=== PATIENT | male | born 1960 | race African-American/Black ===

== ENCOUNTER 2017-01-02 13:06 | Inpatient (IN) | payer OTHER ==
[2017-01-02 17:25] VITALS: BMI 23.7
--- NOTE | 2017-01-02 18:36 | HP ---
CIWA Score - CIWA Score Nausea/Vomitin Muscle Tremors: 1-None Visible, but [place] Anxiety: 3 Agitation: 3 Paroxysmal Sweats: 2 Orientation: 0-Oriented Tacttile Disturbances: 1-Very Mild Itch/Numbness (RUE) Auditory Disturbances: 1-Very Mild Visual Disturbances: 1-Very Mild Sensitivity Headache: 2-Mild CIWA-Ar Total Score: 16 Admission ROS S - HPI Chief Complaint: WITHDRAWAL SYMPTOMS Allergies/Adverse Reactions: Allergies Allergy/AdvReac Type Severity Reaction Status Date / Time Fish Containing Products Allergy Severe Swelling Verified 01/02/17 18:52 shellfish derived Allergy Severe Swelling Verified 01/02/17 18:52 No Known Drug Allergies Allergy Verified 01/02/17 18:52 SEAFOOD Allergy Severe Swelling Uncoded 01/02/17 17:49 NKDA Allergy Uncoded 01/02/17 17:50 History of Present Illness: 56 Y.O. MAN WITH A HISTORY OF ALCOHOL AND COCAINE DEPENDENCE IS HERE SEEKING DETOX. HE REPORTS HIS LONGEST PERIOD OF SOBRIETY HAS BEEN 7 YEARS. Exam Limitations: No Limitations - Ebola screening Have you traveled outside of the country in the last 21 days: No Have you had contact with anyone from an Ebola affected area: No Have you been sick,other than usual withdrawal symptoms: No Do you have a fever: No - Review of Systems Constitutional: Loss of Appetite, Changes in sleep, Unintentional Wgt. Loss EENT: reports: Blurred Vision, Hearing Loss Respiratory: reports: No Symptoms reported Cardiac: reports: No Symptoms Reported GI: reports: Diarrhea : reports: No Symptoms Reported Musculoskeletal: reports: Back Pain Integumentary: reports: No Symptoms Reported Neuro: reports: Headache, Tingling (RUE) Endocrine: reports: No Symptoms Reported Hematology: reports: No Symptoms Reported Psychiatric: reports: Judgement Intact, Mood/Affect Appropiate, Orientated x3, Depressed Other Systems: Reviewed and Negative Patient History - Patient Medical History Hx Anemia: No Hx Asthma: No Hx Chronic Obstructive Pulmonary Disease (COPD): No Hx Cancer: No Hx Cardiac Disorders: No Hx Congestive Heart Failure: No Hx Hypertension: Yes Hx Hypercholesterolemia: No Hx Pacemaker: No HX Cerebrovascular Accident: No Hx Seizures: No Hx Dementia: No Hx Diabetes: No Hx Gastrointestinal Disorders: Yes (acid reflux) Hx Liver Disease: No Hx Genitourinary Disorders: No Hx Sexually Transmitted Disorders: No Hx Renal Disease (ESRD): No Hx Thyroid Disease: No Hx Human Immunodeficiency Virus (HIV): No Hx Hepatitis C: No Hx Depression: Yes Hx Suicide Attempt: Yes ([place] age 24) Hx Bipolar Disorder: Yes (NO MEDS) Hx Schizophrenia: Yes (NO ) - Patient Surgical History Past Surgical History: No Hx Neurologic Surgery: No Hx Cataract Extraction: No Hx Cardiac Surgery: No Hx Lung Surgery: No Hx Breast Surgery: No Hx Breast Biopsy: No Hx Abdominal Surgery: No Hx Appendectomy: No Hx Cholecystectomy: No Hx Genitourinary Surgery: No Hx Section: No Hx Orthopedic Surgery: No Anesthesia Reaction: No - PPD History Previous Implant?: Yes Documented Results: Negative w/o proof PPD to be Administered?: Yes - Reproductive History Patient is a Female of Child Bearing Age (11 -55 yrs old): No - Smoking Cessation Smoking history: Current every day smoker Have you smoked in the past 12 months: Yes Aproximately how many cigarettes per day: 10 Hx Chewing Tobacco Use: No Initiated information on smoking cessation: Yes 'Breaking Loose' booklet given: 01/02/17 - Substance & Tx. History Hx Alcohol Use: Yes Hx Substance Use: Yes Substance Use Type: Alcohol, Cocaine, Heroin Hx Substance Use Treatment: Yes (DETOX: 10/2016 [facility]; REHAB: 05/2010 ) - Substances Abused Cocaine Route: Smoking Frequency: Daily Amount used: $200 Age of first use: 24 Date of Last Use: 01/01/17 Heroin Route: Smoking Frequency: 1-3 times last 30 days Amount used: 1 bag Age of first use: 56 Date of Last Use: 01/01/17 Alcohol-vodka/beer Route: Oral Frequency: Daily Amount used: 3-4 pts./2-3 6 pks. Age of first use: 12 Date of Last Use: 01/01/17 Family Disease History - Family Disease History Family Disease History: Diabetes: Grandparent, Sister ( ), CA: Mother ( LUNG CA; ) Admission Physical Exam S - Vital Signs Vital Signs: Vital Signs - 24 hr 01/02/17 17:21 Temperature 96 F L Pulse Rate 69 Respiratory 20 Rate Blood Pressure 156/97 - Physical General Appearance: Yes: Anxious HEENTM: Yes: Hearing grossly Normal, Normocephalic Respiratory: Yes: Chest Non-Tender, Lungs Clear, Normal Breath Sounds, No Respiratory Distress, No Accessory Muscle Use Neck: Yes: No masses,lesions,Nodules, Trachea in good position Breast: Yes: Within Normal Limits, No Discharge, No masses Cardiology: Yes: Regular Rhythm, Regular Rate Abdominal: Yes: Normal Bowel Sounds, Non Tender Genitourinary: Yes: Other (NO COMPLAINTS REPORTED) Musculoskeletal: Yes: Back pain Extremities: Yes: Normal Capillary Refill, Normal Inspection, Normal Range of Motion, Non-Tender Neurological: Yes: regulatory 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 II-XII NML intact, Fully Oriented, Alert Integumentary: Yes: Normal Color, Dry, Warm Lymphatic: Yes: Within Normal Limits - Diagnostic (1) Alcohol dependence with uncomplicated withdrawal Current Visit: Yes Status: Chronic (2) Cocaine dependence, uncomplicated Current Visit: Yes Status: Chronic (3) Nicotine dependence Current Visit: Yes Status: Chronic (4) Hypertension Current Visit: Yes Status: Chronic Cleared for Admission S - Detox or Rehab [facility] Level of Care: Medically Managed Detox Regimen/Protocol: Librium Urine Drug Screen - Results Urine Drug Screen Results: YORDAN-Cocaine
[2017-01-02] MEDS ORDERED: NICOTINE POLACRILEX 2 MG GUM BC PRN (18:41)
[2017-01-02] MEDS ORDERED: LOPERAMIDE HCL 2 MG CAPSULE PO PRN (18:41)
[2017-01-02] MEDS ORDERED: guaiFENesin/D-METHORPHAN HB 10 ML UNIT-DOSE CUPS PO PRN (18:41)
[2017-01-02] MEDS ORDERED: MAGNESIUM CITRATE 300 ML BOTTLE PO PRN (18:41)
[2017-01-02] MEDS ORDERED: ACETAMINOPHEN 325 MG TABLET (FP) PO PRN (18:41)
[2017-01-02] MEDS ORDERED: IBUPROFEN 400 MG TABLET (FP) PO PRN (18:41)
[2017-01-02] MEDS ORDERED: MAG HYDROX/AL HYDROX/SIMETH 30 ML UNIT-DOSE CUP PO PRN (18:41)
[2017-01-02] MEDS ORDERED: MAGNESIUM HYDROX 2400MG/30ML ORAL SUSPENSION 30 ML CUP PO PRN (18:41)
[2017-01-02] MEDS ORDERED: chlordiazePOXIDE HCL 25 MG CAPSULE PO PRN (18:41)
[2017-01-02] MEDS ORDERED: MENTHOL/PHENOL 1 EACH UD MM PRN (18:41)
[2017-01-02] MEDS ORDERED: hydrOXYzine PAMOATE 50 MG CAPSULE (FP) PO PRN (18:41)
[2017-01-02] MEDS ORDERED: P-EPHED 60MG/TRIPROLIDI 2.5MG TABLET PO PRN (18:41)
[2017-01-02] MEDS ORDERED: chlordiazePOXIDE HCL 25 MG CAPSULE PO ONE (19:15)
[2017-01-02] MEDS: diphenhydrAMINE HCL 50 MG CAPSULE PO PRN (22:14)
[2017-01-02] MEDS: THIAMINE HCL 100 MG TABLET (FP) PO SCH (22:14)
[2017-01-02] MEDS: chlordiazePOXIDE HCL 25 MG CAPSULE PO SCH (22:47)
[2017-01-02 22:49] LABS: URINE APPEARANCE SLCLOUDY; URINE BILIRUBIN NEGATIVE (NEGATIVE); URINE BLOOD NEGATIVE (NEGATIVE); URINE COLOR AMBER; URINE GLUCOSE (UA) NEGATIVE (NEGATIVE); URINE KETONE NEGATIVE (NEGATIVE); URINE LEUK ESTERASE NEGATIVE (NEGATIVE); URINE NITRITE NEGATIVE (NEGATIVE); URINE UROBILINOGEN 4.0 E.U/dl mg/dL (0.2-1.0)
[2017-01-02 22:59] LABS: URINE PROTEIN 2+ (NEGATIVE)
[2017-01-02 23:09] LABS: URINE BACTERIA RARE /hpf (NONE SEEN); URINE MUCUS MANY; URINE RBC 1 /hpf (0-3); URINE WBC 6 /hpf (3-5)
[2017-01-03] MEDS: chlordiazePOXIDE HCL 25 MG CAPSULE PO SCH ×5 (05:41→22:17)
--- NOTE | 2017-01-03 10:28 | PN ---
[facility] CIWA - CIWA Score Nausea/Vomitin Muscle Tremors: 3 Anxiety: 3 Agitation: 2 Paroxysmal Sweats: 1-Minimal Palms Moist Orientation: 0-Oriented Tacttile Disturbances: 1-Very Mild Itch/Numbness Auditory Disturbances: 1-Very Mild Visual Disturbances: 1-Very Mild Sensitivity Headache: 2-Mild CIWA-Ar Total Score: 17 BHS Progress Note (SOAP) Subjective: ALERT,IRRITABLE,ANXIOUS,INTERRUPTED SLEEP,TREMOR Objective: 01/03/17 10:26 Vital Signs Temperature 97.9 F 01/03/17 06:00 Pulse Rate 72 01/03/17 06:00 Respiratory Rate 16 01/03/17 06:00 Blood Pressure 123/77 01/03/17 06:00 O2 Sat by Pulse Oximetry (%) EKG NSR,NORMAL ECG Laboratory Last Values Urine Color Jacque 01/02/17 22:20 Urine Appearance Slcloudy 01/02/17 22:20 Urine pH 5.0 (5.0-8.0) 01/02/17 22:20 Urine Protein 2+ (NEGATIVE) H 01/02/17 22:20 Urine Glucose (UA) Negative (NEGATIVE) 01/02/17 22:20 Urine Ketones Negative (NEGATIVE) 01/02/17 22:20 Urine Blood Negative (NEGATIVE) 01/02/17 22:20 Urine Nitrite Negative (NEGATIVE) 01/02/17 22:20 Urine Bilirubin Negative (NEGATIVE) 01/02/17 22:20 Urine Urobilinogen 4.0 e.u/dl mg/dL (0.2-1.0) 01/02/17 22:20 Ur Leukocyte Esterase Negative (NEGATIVE) 01/02/17 22:20 Urine RBC 1 /hpf (0-3) 01/02/17 22:20 Urine WBC 6 /hpf (3-5) 01/02/17 22:20 Ur Epithelial Cells Rare /hpf (FEW) 01/02/17 22:20 Urine Bacteria Rare /hpf (NONE SEEN) 01/02/17 22:20 Urine Mucus Many 01/02/17 22:20 LABS PENDING Assessment: 01/03/17 10:27 WITHDRAWAL SYMPTOM Plan: CONTINUE DETOX
--- NOTE | 2017-01-03 10:33 | PN ---
S CIWA - CIWA Score Nausea/Vomitin Muscle Tremors: 3 Anxiety: 2 Agitation: 2 Paroxysmal Sweats: 1-Minimal Palms Moist Orientation: 0-Oriented Tacttile Disturbances: 1-Very Mild Itch/Numbness Auditory Disturbances: 1-Very Mild Visual Disturbances: 1-Very Mild Sensitivity Headache: 2-Mild CIWA-Ar Total Score: 16 BHS Progress Note (SOAP) Subjective: ALERT,IRRITABLE,ANXIOUS,INTERRUPTED SLEEP,TREMOR Objective: 01/03/17 10:31 Vital Signs Temperature 97.9 F 01/03/17 06:00 Pulse Rate 72 01/03/17 06:00 Respiratory Rate 16 01/03/17 06:00 Blood Pressure 123/77 01/03/17 06:00 O2 Sat by Pulse Oximetry (%) WITHDRAWAL SYMPTOM Assessment: 01/03/17 10:32 WITHDRAWAL SYMPTOM Plan: CONTINUING DETOX
[2017-01-03] MEDS: amLODIPine BESYLATE 10 MG TABLET (FP) PO SCH (11:03)
[2017-01-03] MEDS: PRENATAL VITAMINS W/ FOLIC ACID TABLET (FP) PO SCH (11:03)
[2017-01-03] MEDS: LISINOPRIL 5 MG TABLET (FP) PO SCH (11:03)
[2017-01-03] MEDS: NICOTINE 14 MG/24 HOURS TOPICAL PATCH TD SCH (11:04)
[2017-01-03 12:27] LABS: MCH 29.1 pg (25.7-33.7); MCHC 33.9 g/dl (32.0-35.9); MEAN PLT VOLUME 8.6 fl (7.5-11.1); PLATELET COUNT 254 K/MM3 (134-434); RDW 14.3 % (11.9-15.9); WHITE BLOOD COUNT 7.3 K/mm3 (4.0-10.0)
[2017-01-03 12:56] LABS: ALBUMIN 3.3 g/dl (3.4-5.0); ALK PHOS 98 U/L (45-117); ANION GAP 7 (8-16); BILIRUBIN,TOTAL 0.5 mg/dL (0.2-1.0); CALCIUM 8.9 mg/dL (8.5-10.1); CO2 28 mmol/L (21-32); CREATININE 1.8 mg/dL (0.7-1.3); GLUCOSE,RANDOM 92 mg/dL (74-106); SGOT/AST 21 U/L (15-37); SGPT/ALT 21 U/L (12-78); TOT PROT 6.6 g/dl (6.4-8.2)
--- NOTE | 2017-01-03 16:25 | CONSULT ---
[facility] Psychiatric Consult - Data Date of interview: 01/03/17 Admission source: [facility] Identifying data: Approached at bedside.Patient declines psychiatric evaluation.
[2017-01-03] MEDS: diphenhydrAMINE HCL 50 MG CAPSULE PO PRN (22:17)
[2017-01-03] MEDS: THIAMINE HCL 100 MG TABLET (FP) PO SCH (22:17)
[2017-01-04] MEDS: chlordiazePOXIDE HCL 25 MG CAPSULE PO SCH ×3 (05:51→20:03)
[2017-01-04] MEDS: PRENATAL VITAMINS W/ FOLIC ACID TABLET (FP) PO SCH (10:34)
[2017-01-04] MEDS: NICOTINE 14 MG/24 HOURS TOPICAL PATCH TD SCH (10:34)
[2017-01-04] MEDS: LISINOPRIL 5 MG TABLET (FP) PO SCH (10:34)
[2017-01-04] MEDS: amLODIPine BESYLATE 10 MG TABLET (FP) PO SCH (10:34)
--- NOTE | 2017-01-04 10:56 | PN ---
[facility] Progress Note (SOAP) Subjective: ALERT,IRRITABLE,ANXIOUS,INTERRUPTED SLEEP,PAIN IN THE BODY Objective: 01/04/17 10:55 Vital Signs Temperature 98.2 F 01/04/17 09:56 Pulse Rate 81 01/04/17 09:56 Respiratory Rate 18 01/04/17 09:56 Blood Pressure 156/75 01/04/17 09:56 O2 Sat by Pulse Oximetry (%) Assessment: 01/04/17 10:56 WITHDRAWAL SYMPTOM Plan: CONTINUE DETOX
--- NOTE | 2017-01-04 14:51 | EKG ---
Test Reason : Blood Pressure : / mmHG Vent. Rate : 063 BPM Atrial Rate : 063 BPM P-R Int : 140 ms QRS Dur : 092 ms QT Int : 456 ms P-R-T Axes : 044 056 010 degrees QTc Int : 466 ms NORMAL SINUS RHYTHM NORMAL ECG NO PREVIOUS ECGS AVAILABLE Confirmed by LISET LI MD ([id number]) on 01/04/2017 2:51:15 PM Referred By: Confirmed By:LISET LI MD
[2017-01-04] MEDS: chlordiazePOXIDE 5 MG CAPSULE PO SCH (22:24)
[2017-01-04] MEDS: THIAMINE HCL 100 MG TABLET (FP) PO SCH (22:24)
[2017-01-04] MEDS: diphenhydrAMINE HCL 50 MG CAPSULE PO PRN (22:25)
[2017-01-05] MEDS: chlordiazePOXIDE 5 MG CAPSULE PO SCH ×3 (05:06→20:19)
[2017-01-05] MEDS ORDERED: amLODIPine BESYLATE 10 MG TABLET (FP) PO SCH (10:00)
[2017-01-05] MEDS: PRENATAL VITAMINS W/ FOLIC ACID TABLET (FP) PO SCH (10:46)
[2017-01-05] MEDS: NICOTINE 14 MG/24 HOURS TOPICAL PATCH TD SCH (10:46)
[2017-01-05] MEDS: LISINOPRIL 5 MG TABLET (FP) PO SCH (10:46)
--- NOTE | 2017-01-05 12:30 | PN ---
S Progress Note (SOAP) Subjective: alert,irritable,anxious,interrupted sleep Objective: 01/05/17 12:29 Vital Signs Temperature 98.1 F 01/05/17 10:00 Pulse Rate 73 01/05/17 10:00 Respiratory Rate 18 01/05/17 10:00 Blood Pressure 130/91 01/05/17 10:00 O2 Sat by Pulse Oximetry (%) Assessment: 01/05/17 12:29 withdrawal symptom Plan: continue detox
[2017-01-05] MEDS: diphenhydrAMINE HCL 50 MG CAPSULE PO PRN (22:17)
[2017-01-05] MEDS: THIAMINE HCL 100 MG TABLET (FP) PO SCH (22:18)
[2017-01-05] MEDS: chlordiazePOXIDE HCL 10 MG CAPSULE PO SCH (22:18)
[2017-01-06] MEDS: chlordiazePOXIDE HCL 10 MG CAPSULE PO SCH (05:15)
[2017-01-06 06:25] VITALS: BP 127/79; PULSE 74; TEMP 98
--- NOTE | 2017-01-06 08:21 | PN ---
S Progress Note (SOAP) Subjective: alert,no complaint Objective: 01/06/17 08:19 Vital Signs Temperature 98 F 01/06/17 06:25 Pulse Rate 74 01/06/17 06:25 Respiratory Rate 18 01/06/17 06:25 Blood Pressure 127/79 01/06/17 06:25 O2 Sat by Pulse Oximetry (%) Assessment: 01/06/17 08:19 detox completed,no withdrawal symptom Plan: discharge today,follow up with after care program as arrangement
--- NOTE | 2017-01-06 08:24 | DS ---
[facility] Detox Discharge Summary Admission Date: 01/02/17 Discharge Date: 01/06/17 - History Present History: Alcohol Dependence, Cocaine Dependence Additional Comments: follow up with after care program as arrangement Pertinent Past History: nicotine dependence hypertension - Physical Exam Results Vital Signs: Vital Signs Temperature 98 F 01/06/17 06:25 Pulse Rate 74 01/06/17 06:25 Respiratory Rate 18 01/06/17 06:25 Blood Pressure 127/79 01/06/17 06:25 O2 Sat by Pulse Oximetry (%) Pertinent Admission Physical Exam Findings: withdrawal symptom - Treatment Hospital Course: Detox Protocol Followed, Detoxed Safely, Responded well, Discharged Condition Good Patient has Accepted a Rehab Referral to: declined - Medication Discharge Medications: Ambulatory Orders Amlodipine Besylate [Norvasc -] 10 mg PO DAILY 01/02/17 Lisinopril [Zestril] 2.5 mg PO DAILY 01/02/17 - Diagnosis (1) Alcohol dependence with uncomplicated withdrawal Current Visit: Yes Status: Chronic (2) Cocaine dependence, uncomplicated Current Visit: Yes Status: Chronic (3) Hypertension Current Visit: Yes Status: Chronic (4) Nicotine dependence Current Visit: Yes Status: Chronic - AMA Did Patient Leave Against Medical Advice: No
== END 2017-01-06 09:08 | disposition home or self-care (01) | DRG 774 ==
LOC: YASAS 13:06 → Y6N 18:44
PROVIDERS: ADMIT Internal Medicine; ATTEND Internal Medicine
PROC: HZ2ZZZZ Detoxification Services for Substance Abuse Treatment (ICD-10-PCS; principal; 2017-01-02)
DX: F10.230 Alcohol dependence with withdrawal, uncomplicated (principal); F14.20 Cocaine dependence, uncomplicated; F17.210 Nicotine dependence, cigarettes, uncomplicated; I10 Essential (primary) hypertension; K21.9 Gastro-esophageal reflux disease without esophagitis; Z91.013 Allergy to seafood; Z91.5 Personal history of self-harm; Z59.0 Homelessness
CPT/HCPCS: 36415; 80053; 81003; 81015; 85027; 86593; 93005; 93010

== ENCOUNTER 2021-04-21 16:18 | Inpatient (IN) | payer OTHER ==
[2021-04-21] MEDS ORDERED: NICOTINE 10 MG CARTRIDGE (INHALER) IH PRN (17:55)
[2021-04-21] MEDS ORDERED: LOPERAMIDE HCL 2 MG CAPSULE PO PRN (17:55)
[2021-04-21] MEDS ORDERED: MAGNESIUM CITRATE 300 ML BOTTLE PO PRN (17:55)
[2021-04-21] MEDS ORDERED: IBUPROFEN 400 MG TABLET (FP) PO PRN (17:55)
[2021-04-21] MEDS ORDERED: MAG HYDROX/AL HYDROX/SIMETH 30 ML UNIT-DOSE CUP PO PRN (17:55)
[2021-04-21] MEDS ORDERED: guaiFENesin 200 MG/10 ML 10 ML UNIT-DOSE CUPS PO PRN (17:55)
[2021-04-21] MEDS ORDERED: ACETAMINOPHEN 325 MG TABLET (FP) PO PRN (17:55)
[2021-04-21] MEDS ORDERED: P-EPHED 60MG/TRIPROLIDI 2.5MG TABLET PO PRN (17:55)
[2021-04-21] MEDS ORDERED: MAGNESIUM HYDROX 2400MG/30ML ORAL SUSPENSION 30 ML CUP PO PRN (17:55)
[2021-04-21] MEDS ORDERED: BISMUTH SUBSALICYLATE 524 MG/30 ML PO PRN (17:57)
[2021-04-21] MEDS ORDERED: METHOCARBAMOL 500 MG TABLET PO PRN (17:57)
[2021-04-21 18:11] VITALS: BMI 22.3
[2021-04-21] MEDS ORDERED: TUBERCULIN PPD 5 TU/0.1ML VIAL ID ONE (19:48)
[2021-04-21] MEDS: LISINOPRIL 5 MG TABLET PO SCH (20:12)
[2021-04-21] MEDS: hydrOXYzine PAMOATE 25 MG CAPSULE (FP) PO SCH ×2 (20:12→21:42)
[2021-04-21] MEDS: MELATONIN 5 MG TABLETS PO SCH (21:41)
[2021-04-21] MEDS: THIAMINE HCL 100 MG TABLET (FP) PO SCH (21:42)
[2021-04-22] MEDS: hydrOXYzine PAMOATE 25 MG CAPSULE (FP) PO SCH ×5 (06:12→21:04)
[2021-04-22] MEDS: LISINOPRIL 5 MG TABLET PO SCH (10:05)
[2021-04-22] MEDS: PRENATAL VITAMINS W/ FOLIC ACID TABLET (FP) PO SCH (10:05)
[2021-04-22] MEDS: ASPIRIN 81 MG CHEWABLE TABLETS PO SCH (10:05)
[2021-04-22] MEDS: MELATONIN 5 MG TABLETS PO SCH (21:04)
[2021-04-22] MEDS: THIAMINE HCL 100 MG TABLET (FP) PO SCH (21:04)
[2021-04-23] MEDS: hydrOXYzine PAMOATE 25 MG CAPSULE (FP) PO SCH ×5 (06:24→21:04)
[2021-04-23] MEDS: PRENATAL VITAMINS W/ FOLIC ACID TABLET (FP) PO SCH (10:41)
[2021-04-23] MEDS: ASPIRIN 81 MG CHEWABLE TABLETS PO SCH (10:41)
[2021-04-23] MEDS: LISINOPRIL 5 MG TABLET PO SCH (10:41)
[2021-04-23 11:12] LABS: HEMATOCRIT 38.7 % (35.4-49); HEMOGLOBIN 12.9 GM/dL (11.7-16.9); MCH 29.2 pg (25.7-33.7); MCHC 33.4 g/dl (32.0-35.9); MEAN CELL VOLUME 87.4 fl (80-96); MEAN PLT VOLUME 8.4 fl (7.5-11.1); PLATELET COUNT 259 10^3/uL (134-434); RBC 4.43 M/mm3 (4.00-5.60); WHITE BLOOD COUNT 4.9 K/mm3 (4.0-10.0)
[2021-04-23 13:24] LABS: BILIRUBIN,TOTAL 0.2 mg/dL (0.2-1); BLOOD UREA NITROGEN 14.4 mg/dL (7-18); CALCIUM 8.6 mg/dL (8.5-10.1); CREATININE 1.6 mg/dL (0.55-1.3); TOT PROT 6.1 g/dl (6.4-8.2)
[2021-04-23] MEDS: MELATONIN 5 MG TABLETS PO SCH (21:04)
[2021-04-23] MEDS: THIAMINE HCL 100 MG TABLET (FP) PO SCH (21:04)
[2021-04-24] MEDS: hydrOXYzine PAMOATE 25 MG CAPSULE (FP) PO SCH ×5 (06:18→21:09)
[2021-04-24] MEDS: LISINOPRIL 5 MG TABLET PO SCH (10:10)
[2021-04-24] MEDS: PRENATAL VITAMINS W/ FOLIC ACID TABLET (FP) PO SCH (10:10)
[2021-04-24] MEDS: ASPIRIN 81 MG CHEWABLE TABLETS PO SCH (10:10)
[2021-04-24] MEDS: THIAMINE HCL 100 MG TABLET (FP) PO SCH (21:09)
[2021-04-24] MEDS: MELATONIN 5 MG TABLETS PO SCH (21:09)
[2021-04-25] MEDS: hydrOXYzine PAMOATE 25 MG CAPSULE (FP) PO SCH ×5 (06:28→21:33)
[2021-04-25] MEDS: ASPIRIN 81 MG CHEWABLE TABLETS PO SCH (10:12)
[2021-04-25] MEDS: PRENATAL VITAMINS W/ FOLIC ACID TABLET (FP) PO SCH (10:12)
[2021-04-25] MEDS: LISINOPRIL 5 MG TABLET PO SCH (10:12)
[2021-04-25] MEDS: MELATONIN 5 MG TABLETS PO SCH (21:32)
[2021-04-25] MEDS: THIAMINE HCL 100 MG TABLET (FP) PO SCH (21:32)
[2021-04-26] MEDS: hydrOXYzine PAMOATE 25 MG CAPSULE (FP) PO SCH ×5 (06:22→21:38)
[2021-04-26] MEDS: PRENATAL VITAMINS W/ FOLIC ACID TABLET (FP) PO SCH (10:06)
[2021-04-26] MEDS: LISINOPRIL 5 MG TABLET PO SCH (10:06)
[2021-04-26] MEDS: ASPIRIN 81 MG CHEWABLE TABLETS PO SCH (10:06)
[2021-04-26] MEDS: THIAMINE HCL 100 MG TABLET (FP) PO SCH (21:38)
[2021-04-26] MEDS: MELATONIN 5 MG TABLETS PO SCH (21:38)
[2021-04-27] MEDS ORDERED: LISINOPRIL 5 MG TABLET ONE (03:12)
[2021-04-27] MEDS ORDERED: LISINOPRIL 5 MG TABLET PO SCH (06:00)
[2021-04-27] MEDS: hydrOXYzine PAMOATE 25 MG CAPSULE (FP) PO SCH ×5 (06:17→21:04)
[2021-04-27] MEDS: ASPIRIN 81 MG CHEWABLE TABLETS PO SCH (10:29)
[2021-04-27] MEDS: PRENATAL VITAMINS W/ FOLIC ACID TABLET (FP) PO SCH (10:29)
[2021-04-27] MEDS: MELATONIN 5 MG TABLETS PO SCH (21:04)
[2021-04-27] MEDS: THIAMINE HCL 100 MG TABLET (FP) PO SCH (21:04)
[2021-04-28 04:53] VITALS: BP 162/101; PULSE 74; TEMP 98.6
== END 2021-04-28 04:50 | disposition left against medical advice (07) | DRG 770 ==
LOC: YASAS 16:18 → Y3W 18:45
PROVIDERS: ADMIT Allergy & Immunology; ATTEND Allergy & Immunology
PROC: HZ42ZZZ Group Counseling for Substance Abuse Treatment, Cognitive-Behavioral (ICD-10-PCS; principal; 2021-04-21)
DX: F10.20 Alcohol dependence, uncomplicated (principal); F14.20 Cocaine dependence, uncomplicated; F17.210 Nicotine dependence, cigarettes, uncomplicated; I10 Essential (primary) hypertension; I25.10 Atherosclerotic heart disease of native coronary artery without angina pectoris; R79.9 Abnormal finding of blood chemistry, unspecified; R73.09 Other abnormal glucose; Z95.5 Presence of coronary angioplasty implant and graft; Z91.013 Allergy to seafood; Z59.00 Homelessness unspecified
CPT/HCPCS: 36415; 80053; 82962; 85027; 86780; 87811; 93005; 93010; C9803; U0003; U0005

== ENCOUNTER 2022-09-20 13:17 | Inpatient (IN) | payer OTHER ==
[2022-09-20 14:00] VITALS: BMI 22.3
[2022-09-20] MEDS ORDERED: DICYCLOMINE HCL 10 MG CAPSULE PO PRN (14:44)
[2022-09-20] MEDS ORDERED: METHOCARBAMOL 500 MG TABLET PO PRN (14:44)
[2022-09-20] MEDS ORDERED: IBUPROFEN 400 MG TABLET (FP) PO PRN (14:44)
[2022-09-20] MEDS ORDERED: MAG HYDROX/AL HYDROX/SIMETH 30 ML UNIT-DOSE CUP PO PRN (14:44)
[2022-09-20] MEDS ORDERED: IBUPROFEN 600 MG TABLET (FP) PO PRN (14:44)
[2022-09-20] MEDS ORDERED: BENZOCAINE/MENTHOL (CHLORASEPTIC ) LOZENGE MM PRN (14:44)
[2022-09-20] MEDS ORDERED: BISMUTH SUBSALICYLATE 524 MG/30 ML PO PRN (14:44)
[2022-09-20] MEDS ORDERED: NALOXONE HCL 0.4 MG/ML VIAL IM PRN (14:44)
[2022-09-20] MEDS ORDERED: LOPERAMIDE HCL 2 MG CAPSULE PO PRN (14:44)
[2022-09-20] MEDS ORDERED: ONDANSETRON *ODT* 4 MG TABLET SL PRN (14:44)
[2022-09-20] MEDS ORDERED: POLYETHYLENE GLYCOL (HEALTHYLAX) 3350 17 GM PACKET PO PRN (14:44)
[2022-09-20] MEDS ORDERED: MAGNESIUM HYDROX 2400MG/30ML ORAL SUSPENSION 30 ML CUP PO PRN (14:44)
[2022-09-20] MEDS ORDERED: guaiFENesin 600 MG TABLET.ER (FP) PO PRN (14:44)
[2022-09-20] MEDS ORDERED: BENZONATATE 200 MG CAPSULE PO PRN (14:44)
[2022-09-20] MEDS ORDERED: ACETAMINOPHEN 325 MG TABLET (FP) PO PRN (14:44)
[2022-09-20] MEDS ORDERED: amLODIPine BESYLATE 5 MG TABLET (FP) ONE (15:22)
[2022-09-20] MEDS: NICOTINE 7 MG/24 HOURS TOPICAL PATCH TD SCH (15:27)
[2022-09-20] MEDS: PRENATAL VITAMINS W/ FOLIC ACID TABLET (FP) PO SCH (15:30)
[2022-09-20] MEDS ORDERED: PRENATAL VITAMINS W/ FOLIC ACID TABLET (FP) PO ONE (15:31)
[2022-09-20] MEDS ORDERED: LISINOPRIL 5 MG TABLET PO SCH (15:45)
[2022-09-20] MEDS ORDERED: amLODIPine BESYLATE 5 MG TABLET (FP) PO ONE (15:45)
[2022-09-20] MEDS: LISINOPRIL 5 MG TABLET PO SCH (18:37)
[2022-09-20] MEDS: MELATONIN 5 MG TABLETS PO SCH (22:15)
[2022-09-20] MEDS: THIAMINE HCL 100 MG TABLET (FP) PO SCH (22:15)
[2022-09-21] MEDS: NICOTINE 7 MG/24 HOURS TOPICAL PATCH TD SCH (10:29)
[2022-09-21] MEDS: LISINOPRIL 5 MG TABLET PO SCH (10:31)
[2022-09-21] MEDS: PRENATAL VITAMINS W/ FOLIC ACID TABLET (FP) PO SCH (10:31)
[2022-09-21] MEDS: amLODIPine BESYLATE 10 MG TABLET (FP) PO SCH (10:31)
[2022-09-21 10:53] LABS: MCH 29.4 pg (25.7-33.7); MCHC 34.1 g/dl (32.0-35.9); MEAN PLT VOLUME 8.7 fl (7.5-11.1); PLATELET COUNT 247 10^3/uL (134-434); RBC 4.42 M/mm3 (4.00-5.60); RDW 14.2 % (11.9-15.9); WHITE BLOOD COUNT 4.8 K/mm3 (4.0-10.0)
[2022-09-21 11:37] LABS: CALCIUM 9.4 mg/dL (8.5-10.1)
[2022-09-21 11:38] LABS: ALBUMIN 3.6 g/dl (3.4-5.0); BLOOD UREA NITROGEN 16.3 mg/dL (7-18)
[2022-09-21 11:41] LABS: CREATININE 1.4 mg/dL (0.55-1.3)
[2022-09-21 11:43] LABS: BILIRUBIN,TOTAL 0.2 mg/dL (0.2-1)
[2022-09-21 13:48] VITALS: RESP 18
[2022-09-21] MEDS: THIAMINE HCL 100 MG TABLET (FP) PO SCH (22:33)
[2022-09-21] MEDS: MELATONIN 5 MG TABLETS PO SCH (22:33)
[2022-09-22 09:35] VITALS: BP 153/95; PULSE 75; TEMP 97.3
[2022-09-22] MEDS: NICOTINE 7 MG/24 HOURS TOPICAL PATCH TD SCH (10:34)
[2022-09-22] MEDS: amLODIPine BESYLATE 10 MG TABLET (FP) PO SCH (10:34)
[2022-09-22] MEDS: LISINOPRIL 5 MG TABLET PO SCH (10:34)
[2022-09-22] MEDS: PRENATAL VITAMINS W/ FOLIC ACID TABLET (FP) PO SCH (10:34)
== END 2022-09-22 09:30 | disposition home or self-care (01) | DRG 774 ==
LOC: YASAS 13:17 → UNDOADMIN 15:54 → Y6N 15:54
PROVIDERS: ADMIT Allergy & Immunology; ATTEND Surgery
PROC: HZ2ZZZZ Detoxification Services for Substance Abuse Treatment (ICD-10-PCS; principal; 2022-09-20)
DX: F10.230 Alcohol dependence with withdrawal, uncomplicated (principal); F14.20 Cocaine dependence, uncomplicated; F12.20 Cannabis dependence, uncomplicated; F17.210 Nicotine dependence, cigarettes, uncomplicated; I25.10 Atherosclerotic heart disease of native coronary artery without angina pectoris; I10 Essential (primary) hypertension; I25.2 Old myocardial infarction; Z95.5 Presence of coronary angioplasty implant and graft; Z86.73 Personal history of transient ischemic attack (TIA), and cerebral infarction without residual deficits; Z28.310 Unvaccinated for COVID-19; Z28.9 Immunization not carried out for unspecified reason
CPT/HCPCS: 36415; 80053; 85027; 86780; 87811; 93005; 93010; C9803-CS; U0003; U0005